=== PATIENT | male | born 1965 | race Caucasian/White ===

== ENCOUNTER 2018-10-03 18:25 | Emergency (ER) | payer OTHER ==
[~2018-10-03] VITALS: Ht 188 cm; Wt 93.0 kg
[2018-10-03 18:58] VITALS: Ht 188 cm; Wt 93.0 kg
[2018-10-03 21:07] VITALS: BP 119/92
== END 2018-10-03 21:07 | disposition home or self-care (01) ==
LOC: ED 18:25
DX: S90.112A Contusion of left great toe without damage to nail, initial encounter (principal); W22.8XXA Striking against or struck by other objects, initial encounter; Y93.89 Activity, other specified; Y92.89 Other specified places as the place of occurrence of the external cause; Y99.8 Other external cause status
CPT/HCPCS: 90715

== ENCOUNTER 2020-05-06 19:47 | Emergency (ER) | payer OTHER ==
[~2020-05-06] VITALS: Ht 188 cm; Wt 93.0 kg
[2020-05-06 19:59] VITALS: Ht 188 cm; Wt 93.0 kg
[2020-05-06 20:45] LABS: BASOPHIL % 0.9 % (0.2-1.5); PLATELET COUNT 215 x10^3mcL (152-348); RED CELL DISTRIBUTION WIDTH 14.3 % (12.1-16.2)
[2020-05-06 20:53] LABS: UA SPECIFIC GRAVITY <=1.005 (1.005-1.035); microscopic required? YES; urine erythrocyte TRACE (NEGATIVE)
[2020-05-06 20:54] LABS: CALCIUM 8.5 mg/dL (8.5-10.1); CARBON DIOXIDE 22.8 mmol/L (21-32); CHLORIDE SERUM 97 mmol/L (98-107); CREATININE SERUM 1.1 mg/dL (0.7-1.3); GFR1 > 60 mL/min; GLUCOSE SERUM 109 mg/dL (74-106); POTASSIUM SERUM 3.7 mmol/L (3.5-5.1); SODIUM SERUM 135 mmol/L (136-145)
[2020-05-06 21:00] LABS: ALBUMIN 4.3 g/dL (3.4-5.0); ALKALINE PHOSPHATASE 93 U/L (46-116); ALT/SGPT 181 U/L (16-63); AST/SGOT 259 U/L (15-37); BILIRUBIN TOTAL 0.91 mg/dL (0.20-1.00); LIPASE 312 IU/L (73-393); TOTAL PROTEIN, SERUM 8.2 g/dL (6.4-8.2); TRIGLYCERIDES 81 mg/dL (<150)
[2020-05-06 21:04] LABS: CHOLESTEROL 270 mg/dL (<200); CHOLESTEROL/HDL RATIO 2.3; HDL CHOLESTEROL 119 mg/dL (40-60)
[2020-05-06 21:12] LABS: AMPHETAMINE QUAL UR NONE DETECTED (See below)
[2020-05-06] MEDS ORDERED: ATIVAN1 MG PO (21:16)
[2020-05-06 23:22] VITALS: BP 146/95
== END 2020-05-06 23:22 | disposition home or self-care (01) ==
LOC: ED 19:47
PROVIDERS: Specialist
DX: F10.239 Alcohol dependence with withdrawal, unspecified (principal); Z90.49 Acquired absence of other specified parts of digestive tract
CPT/HCPCS: G0480; J2060; J7030